=== PATIENT | female | born 1995 ===

== ENCOUNTER 2016-09-08 19:30 | Emergency (ER) | payer MEDICAID ==
[2016-09-08 19:43] VITALS: BP 113/68; PULSE 120; RESP 20; TEMP 98.5; O2SAT 98
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
== END 2016-09-08 21:15 | disposition home or self-care (01) ==
LOC: H.ER 19:30
DX: F41.9 Anxiety disorder, unspecified (principal); F31.9 Bipolar disorder, unspecified; Z3A.37 37 weeks gestation of pregnancy; O99.343 Other mental disorders complicating pregnancy, third trimester

== ENCOUNTER 2017-05-25 03:38 | Emergency (ER) | payer MEDICAID ==
[2017-05-25 03:48] VITALS: O2SAT 98
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
[2017-05-25 05:43] LABS: BARBITURATES, UR NEGATIVE (NEGATIVE); BENZODIAZEPINES, UR NEGATIVE (NEGATIVE); OPIATES, UR NEGATIVE (NEGATIVE); PHENCYCLIDINE, UR NEGATIVE (NEGATIVE)
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
--- NOTE | 2017-05-25 07:05 | ED PDOC ---
- ECG O2 Sat by Pulse Oximetry: 98 (RA) Pulse Ox Interpretation: Normal - Progress ED Course And Treament: 1023: Crisis saw pt. Does not meet criteria for admit. Mekhi diaz. AAOx3. Medical Decision Making Medical Decision Making: Time: 0700 --Patient is endorsed to provider from Dr. Meng Bolden. Pending crisis evaluation. Scribe Attestation: Documented by Mayra Everett, acting as a scribe for Duarte Harper MD. Provider Scribe Attestation: All medical record entries made by the Scribe were at my direction and personally dictated by me. I have reviewed the chart and agree that the record accurately reflects my personal performance of the history, physical exam, medical decision making, and the department course for this patient. I have also personally directed, reviewed, and agree with the discharge instructions and disposition. Disposition - Clinical Impression Clinical Impression: Head injury, Drug abuse - POA Present On Arrival: Falls Or Trauma - Disposition Referrals: [facility] [Outside] - 05/27/17 [facility] [Outside] - 05/27/17 Disposition: Routine/Home Disposition Time: 10:24 Condition: STABLE Additional Instructions: Return if not better in 3 days. Instructions: Closed Head Injury (DC), Drug Abuse Treatment
[2017-05-25 10:48] VITALS: BP 110/71; PULSE 88; RESP 16; TEMP 97.6
== END 2017-05-25 10:48 | disposition home or self-care (01) ==
LOC: H.ER 03:38
DX: S09.90XA Unspecified injury of head, initial encounter (principal); Y04.0XXA Assault by unarmed brawl or fight, initial encounter; Y92.89 Other specified places as the place of occurrence of the external cause; F19.10 Other psychoactive substance abuse, uncomplicated; F31.9 Bipolar disorder, unspecified; F41.9 Anxiety disorder, unspecified